=== PATIENT | female | born 1985 | race Asian ===

== ENCOUNTER 2020-10-28 14:23 | Outpatient (REF) | payer OTHER, SELFPAY ==
[2020-10-28 15:16] LABS: Estimated Average Glucose 214 mg/dL; Hemoglobin A1c % 9.1 %
[2020-10-28 15:43] LABS: Alanine Aminotransferase 170 U/L (0-31); Anion Gap 16 (12-20); Aspartate Amino Transferase 107 U/L (5-31); Blood Urea Nitrogen 12 mg/dL (9-16); Carbon Dioxide 22 mmol/L (22-29); Chloride 105 mmol/L (96-108); Cholesterol 220 mg/dL; Estimated Glomerular Filt Rate > 60; Glucose Fasting 188 mg/dL (60-99); HDL Cholesterol 32 mg/dL; LDL Cholesterol Calculated 118 mg/dl; Potassium 3.9 mmol/L (3.3-5.1); Sodium 139 mmol/L (135-145); Triglycerides 353 mg/dL
[2020-10-28 16:20] LABS: Microalbum/Creatinine Ratio Ur 12.5 ug/mg cr
== END 2020-10-28 14:24 | disposition home or self-care (01) ==
LOC: HO.LAB 14:23
PROVIDERS: PCP Family Medicine; Visit Provider Family Medicine
DX: E11.9 Type 2 diabetes mellitus without complications (principal); E78.00 Pure hypercholesterolemia, unspecified; I10 Essential (primary) hypertension; R79.89 Other specified abnormal findings of blood chemistry
CPT/HCPCS: 36415; 80051; 80061; 82043; 82565; 82947; 83036; 84443; 84450; 84460; 84520

== ENCOUNTER 2021-09-20 13:33 | Emergency (ER) | payer OTHER, SELFPAY ==
[2021-09-20 14:15] VITALS: BP 119/76; PULSE 100; RESP 18; TEMP 36.7; O2SAT 97; BMI 35.6
[2021-09-20 15:18] VITALS: BP 128/75; PULSE 90; TEMP 37.1; O2SAT 98
[2021-09-20] MEDS: Lidocaine HCl 2 % MPF 5 ML VIAL SUBCUT (15:56)
--- NOTE | 2021-09-20 16:17 | ED.SKABFB ---
HPI - Skin/Abscess/Foreign Bdy General Chief complaint: General Medical Stated complaint: abscess Time Seen by Provider: 09/20/21 15:29 Source: patient Mode of arrival: ambulatory Limitations: no limitations History of Present Illness MD complaint: abscess/boil Onset (ago): week(s) (1) Location: face (chin) Severity: moderate Quality: aching and constant Pain Consistency: constant Relieving factors: none Exacerbating factors: none Context: none Associated symptoms: denies other symptoms Treatments prior to arrival: attempted to drain pus at home Related Data Previous Rx's Medication Instructions Recorded cephalexin 500 mg capsule 500 mg PO Q6H 10 Days #40 cap 09/20/21 doxycycline monohydrate 100 mg 100 mg PO BID 10 Days #20 tab 09/20/21 tablet ibuprofen 800 mg tablet 800 mg PO Q8H PRN #14 tab 09/20/21 oxycodone 5 mg tablet 5 mg PO Q6H PRN #14 tab 09/20/21 Allergies Allergy/AdvReac Type Severity Reaction Status Date / Time No Known Allergies Allergy Verified 09/20/21 14:14 [No Known Allergies*] Review of Systems Review of Systems: Constitutional : Denies history of same, Denies any other sites involved, Denies IV drug use, Denies history of MRSA, Denies swollen glands, Denies injury, Denies Fever, Denies Chills, + Sig Pain, Denies Systemic symptoms Cardiovascular : No Chest Pain, No SOB Respiratory : No Dyspnea Gastrointestinal : No abdominal pain Musculoskeletal : No Joint Swelling Skin : + abscess with surrounding erythema, No skin laceration, No Foreign bodies, No spreading rash, Denies bites, Denies discharge, Neuro : No Weakness, No Numbness/tingling Psych : No SI/HI/thoughts of self injury Yes all other systems are reviewed and are negative [facility] Past Medical History Attestation statement: The following information was validated with the patient. Social History Social History Advance Directives: No Advance Directives Information Provided: No Physical Exam Vital Signs: Vital Signs: Last Vital Signs Temp 98.7 F 09/20/21 15:18 Pulse 90 09/20/21 15:18 Resp 18 09/20/21 14:15 BP 128/75 09/20/21 15:18 Pulse Ox 98 09/20/21 15:18 BMI result Body Mass Index 35.6 vital signs have been reviewed as normal and appeared to be correct. Blood pressure normal Heart rate normal. Respiration rate normal. Temperature normal. Oxygen saturation normal. Appearance: Alert. Oriented X3. No acute distress. Head: Normal external exam. Normocephalic. Atraumatic. Eyes: PERRLA. EOMI. Conjunctiva and sclera normal. Eyelids normal. ENT: Pharynx normal. Uvula midline. Moist mucous membranes. Neck: Normal inspection. Neck supple. FROM. CVS: Normal heart rate and rhythm. Respiratory: No respiratory distress. Painless inspiration. Skin: Skin warm and dry. Normal skin color. Normal skin turgor. Patient with abscess to right chin with mild surrounding erythema. No streaking or drainage noted at this time or foreign bodies no additional rashes/lesions/lacerations noted. Extremities: Extremities exhibit normal range of motion. Extremities nontender. Neuro: Oriented X 3. No motor deficit. No sensory deficit. Reflexes normal. Normal steady gait. No focal neuro deficits noted. Vascular: + radial pulses/+ 2 distal pedal pulses/+2 dorsalis pedis b/l. Normal cap refill. No cyanosis noted to upper extremity nails and lower extremity toes nails. Course Course Course Narrative: IMP/Plan: abscess. No systemic toxicity, and pt looks well. + surrounding cellulitis. Not c/w nec fasc/ myositis/ DVT/ osteomyelitis. patient now status post I&D of abscess and patient tolerated procedure well. No complications. No labs or imaging indicated at this time. Will DC home antibiotics and symptomatic treatment instructions return if any new or worsening symptoms to follow up with primary care provider. Patient understands agrees this plan. MDM - Skin/Abscess/Foreign Bdy Medical Records Attestation: I reviewed the patient's medical records. Procedures Abscess I/D Site: face Side (if applicable): right Local Anesthetic: lidocaine 2% Amount of anesthesia used (mL): 3 Technique: needle aspiration and incised with blade Amount of fluid expressed (mL): 3 Sent for culture/gram staining?: No Irrigation: Yes Packing used?: none Complications: other (No complication) Discharge Plan Discharge Clinical Impression: Abscess, Cellulitis Patient Disposition: Home, Self-Care Instructions: Cellulitis (ED), Abscess Incision and Drainage (DC), Warm Compress or Soak (ED) Prescriptions: New doxycycline monohydrate 100 mg tablet 100 mg PO BID 10 Days Qty: 20 0RF cephalexin 500 mg capsule 500 mg PO Q6H 10 Days Qty: 40 0RF ibuprofen 800 mg tablet 800 mg PO Q8H PRN (Reason: pain) Qty: 14 0RF oxycodone 5 mg tablet 5 mg PO Q6H PRN (Reason: pain) Qty: 14 0RF Referrals: Milton Martínez MD [Primary Care Provider] - 2 days Print Language: [place]
[2021-09-20] MEDS: Ibuprofen 800 MG TABLET PO (16:36)
[2021-09-20] MEDS: oxyCODONE HCl Immed Release 5 MG TABLET PO (16:37)
== END 2021-09-20 16:44 | disposition home or self-care (01) ==
PROVIDERS: Emergency Provider Emergency Medicine Emergency Medical Services; PCP Family Medicine
DX: L02.01 Cutaneous abscess of face (principal); Z79.899 Other long term (current) drug therapy
CPT/HCPCS: 10060; 99282; 99284

== ENCOUNTER 2021-10-10 09:38 | Outpatient (REF) | payer OTHER, SELFPAY | END 2021-10-10 09:39 | disposition home or self-care (01) | LOC: HO.LAB 09:38 | PROVIDERS: PCP Family Medicine; Visit Provider Family Medicine | DX: Z34.90 Encounter for supervision of normal pregnancy, unspecified, unspecified trimester (principal) | CPT/HCPCS: 36415; 84702 ==

== ENCOUNTER 2021-12-29 12:08 | Outpatient (REF) | payer OTHER, SELFPAY ==
[2021-12-29 14:12] LABS: Syphilis Screen Nonreactive (Nonreactive)
[2022-01-01 07:46] LABS: Hepatitis B Surface Antigen Negative (Negative)
[2022-01-02 21:33] LABS: Rubeola IgG (Measles) >300.00 AU/mL
[2022-01-03 15:32] LABS: TS Negative Control Passed; TS Panel A 0; TS Panel B 0; TS Positive Control Passed; TSpotTB Negative (Negative)
== END 2021-12-29 12:09 | disposition home or self-care (01) ==
LOC: HO.LAB 12:08
PROVIDERS: PCP Family Medicine; Visit Provider Internal Medicine
DX: Z01.84 Encounter for antibody response examination (principal); Z11.1 Encounter for screening for respiratory tuberculosis
CPT/HCPCS: 36415; 86481; 86735; 86762; 86765; 86780; 87340

== ENCOUNTER 2023-01-15 12:46 | Outpatient (REF) | payer MEDICAID, SELFPAY ==
--- NOTE | ~2023-01-15 | XR_ITS ---
EXAMINATION: XR FOOT, RIGHT CLINICAL INFORMATION: Right foot pain COMPARISON: None available. TECHNIQUE: AP, lateral, and oblique views of the right foot. FINDINGS: Moderate plantar calcaneal spur. Dorsal calcaneal spurring/hypertrophic change. Mild degenerative changes in the first metatarsophalangeal joint. Bone mineralization is normal. XR/XR foot RT min 3V IMPRESSION: Moderate plantar calcaneal spur. Dorsal calcaneal spurring/hypertrophic change. Mild degenerative changes in the first metatarsophalangeal joint. No displaced fracture. Recommend follow-up imaging in 10-14 days if fracture is suspected. Additional imaging with CT scan or MRI should be considered for better visualization as these modalities are much more sensitive for detection of fracture or other underlying pathology.
== END 2023-01-15 12:47 | disposition home or self-care (01) ==
LOC: HO.XRAY 12:46
PROVIDERS: PCP Family Medicine; Visit Provider Family Medicine
DX: M79.671 Pain in right foot (principal)
CPT/HCPCS: 73630

== ENCOUNTER 2023-07-24 13:11 | Outpatient (REF) | payer OTHER, SELFPAY ==
[2023-07-24 14:16] LABS: Estimated Average Glucose 217 mg/dL; Hemoglobin A1c % 9.2 % (<6.0)
[2023-07-24 14:42] LABS: Alanine Aminotransferase 107 U/L (0-31); Albumin Level 4.4 g/dL (3.5-5.0); Alkaline Phosphatase 90 U/L (39-117); Aspartate Amino Transferase 43 U/L (5-31); Bilirubin Direct 0.2 mg/dL (0.0-0.5); Bilirubin Total 0.9 mg/dL (0.0-1.0); Cholesterol 199 mg/dL (<200); Glucose Fasting 247 mg/dL (60-99); HDL Cholesterol 37 mg/dL (>40); Total Protein 7.7 g/dL (6.5-8.0); Triglycerides 481 mg/dL (<150)
[2023-07-24 14:59] LABS: Free T4 (Free Thyroxine) 0.83 ng/dL (0.71-1.85); Thyroid Stimulating Hormone 3.83 uIU/mL (0.32-4.0)
[2023-07-24 15:10] LABS: Creatinine Urine 258.37 mg/dL; Microalbum/Creatinine Ratio Ur 13.9 ug/mg cr (<30)
== END 2023-07-24 13:12 | disposition home or self-care (01) ==
LOC: HO.LAB 13:11
PROVIDERS: Visit Provider Family Medicine
DX: E11.9 Type 2 diabetes mellitus without complications (principal); E78.00 Pure hypercholesterolemia, unspecified; K75.81 Nonalcoholic steatohepatitis (NASH); E03.9 Hypothyroidism, unspecified
CPT/HCPCS: 36415; 80061; 80076; 82043; 82570; 82947; 83036; 84439; 84443

== ENCOUNTER 2023-09-14 15:19 | Emergency (ER) | payer OTHER, SELFPAY ==
--- NOTE | ~2023-09-14 | XR_ITS ---
EXAMINATION: XR SOFT TISSUE NECK CLINICAL INDICATION: Left-sided throat pain after a fish bone was stuck. COMPARISON: None available. TECHNIQUE: 2 views of the soft tissue neck were obtained. FINDINGS: No radiopaque foreign body. No abnormal soft tissue calcification. The airway appears patent. No acute osseous abnormality. No concerning lytic or blastic osseous lesion. XR/XR soft tissue neck IMPRESSION: No radiopaque foreign body or abnormal soft tissue calcification.
[2023-09-14 15:37] VITALS: BP 115/89; PULSE 93; RESP 20; TEMP 36.6; O2SAT 96; BMI 58.5
--- NOTE | 2023-09-14 15:37 | ED.GENADULT ---
HPI - General Adult General Chief complaint: General Medical Stated complaint: Fish bone stuck in throat Related Data Previous Rx's ?Medication ?Instructions ?Recorded cephalexin 500 mg capsule 500 mg PO Q6H 10 days #40 caps 09/20/21 doxycycline monohydrate 100 mg 100 mg PO BID 10 days #20 tabs 09/20/21 tablet ibuprofen 800 mg tablet 800 mg PO Q8H PRN pain #14 tabs 09/20/21 oxycodone 5 mg tablet 5 mg PO Q6H PRN pain #14 tabs 09/20/21 Allergies Allergy/AdvReac Type Severity Reaction Status Date / Time No Known Allergies Allergy Verified 09/14/23 15:40 [No Known Allergies*] PMFSH Social History Social History Advance Directives: No Advance Directives Information Provided: No Do you have a plan to hurt others: No Plan Physical Exam ED Vital Signs: Vital Signs - 24 hr 09/14/23 15:37 Temperature 98 F Pulse Rate 93 Respiratory Rate 20 Blood Pressure 115/89 Pulse Oximetry 96 Oxygen Delivery Method Room Air BMI result Body Mass Index 58.5 Course Course Course Narrative: This is a rapid medical exam. Deferred additional HPI, ROS, PE to primary provider. 38 yo female with history of DM here with complaints of feeling like fish bone is stuck in her throat x 1 hr. Able to swallow water without difficulty. Will obtain x-ray DAYANA Key APRN Discharge Plan Discharge Clinical Impression: Sore throat Patient Disposition: Left W/O Completing Treatment Prescriptions: No Action doxycycline monohydrate 100 mg tablet 100 mg PO BID 10 Days Qty: 20 0RF cephalexin 500 mg capsule 500 mg PO Q6H 10 Days Qty: 40 0RF ibuprofen 800 mg tablet 800 mg PO Q8H PRN (Reason: pain) Qty: 14 0RF oxycodone 5 mg tablet 5 mg PO Q6H PRN (Reason: pain) Qty: 14 0RF Interventions: LWBS Worksheet Last Done: 09/14/23 17:59 Discharge Date/Time: 09/14/23 18:23
== END 2023-09-14 18:23 | disposition left against medical advice (07) ==
LOC: HO.ED 18:01
PROVIDERS: Emergency Provider Emergency Medicine; PCP Family Medicine
DX: R09.A2 Foreign body sensation, throat (principal); J02.9 Acute pharyngitis, unspecified; E11.9 Type 2 diabetes mellitus without complications; R13.10 Dysphagia, unspecified
CPT/HCPCS: 70360; 99281; 99283

== ENCOUNTER 2023-11-16 09:32 | Outpatient (REF) | payer OTHER, SELFPAY ==
[2023-11-16 11:21] LABS: Free T4 (Free Thyroxine) 0.87 ng/dL (0.71-1.85)
== END 2023-11-16 09:33 | disposition home or self-care (01) ==
LOC: HO.LAB 09:32
PROVIDERS: PCP Family Medicine; Visit Provider Family Medicine
DX: E03.9 Hypothyroidism, unspecified (principal)
CPT/HCPCS: 36415; 84439; 84443

== ENCOUNTER 2023-11-23 09:03 | Outpatient (REF) | payer OTHER, SELFPAY ==
[2023-11-23 10:26] LABS: Estimated Average Glucose 269 mg/dL
[2023-11-23 10:47] LABS: Erythrocyte Sedimentation Rate 12 MM/HR (0-20)
[2023-11-23 12:04] LABS: Alanine Aminotransferase 93 U/L (0-31); Aspartate Amino Transferase 65 U/L (5-31); Ferritin 236 ng/mL (10-122); Glucose Fasting 280 mg/dL (60-99)
[2023-11-28 06:33] LABS: Anti Nuclear Antibody Screen NEGATIVE (NEGATIVE)
== END 2023-11-23 09:04 | disposition home or self-care (01) ==
LOC: HO.LAB 09:03
PROVIDERS: PCP Family Medicine; Visit Provider Family Medicine
DX: E11.9 Type 2 diabetes mellitus without complications (principal); K75.81 Nonalcoholic steatohepatitis (NASH); M19.90 Unspecified osteoarthritis, unspecified site
CPT/HCPCS: 36415; 82728; 82947; 83036; 84450; 84460; 85652; 86038